=== PATIENT | female | born 1975 | race American Indian/Alaskan Native ===

== ENCOUNTER 2018-11-07 03:37 | Emergency (ER) | payer BC, OTHER ==
[2018-11-07 03:45] VITALS: BP 118/79
[2018-11-07] MEDS ORDERED: IBUPROFEN PO ONE (03:45)
[2018-11-07] MEDS ORDERED: IBUPROFEN ONE (03:48)
--- NOTE | 2018-11-07 03:53 | Emergency Department Report ---
ED Extremity Problem HPI - General Chief complaint: Extremity Injury, Lower Stated complaint: FOOT PAIN Time Seen by Provider: 11/07/18 03:44 Source: patient, EMS Mode of arrival: Ambulatory Limitations: No Limitations - History of Present Illness Initial comments: 43 yr old female presents to the ED because her left foot was run over by stretcher. Patient is a hospital employee. Patient is ambulatory. MD Complaint: extremity pain -: minutes(s) (30) Location: left, other (foot) Severity scale (0 -10): 8 Quality: aching Improves with: immobilization Worsens with: palpation Associated Symptoms: denies other symptoms - Related Data Previous Rx's Medication Instructions Recorded Last Taken Type Naproxen [Naprosyn] 500 mg PO BID #20 tablet 11/07/18 Unknown Rx Allergies Allergy/AdvReac Type Severity Reaction Status Date / Time latex Allergy Unknown Verified 11/07/18 03:44 ED Review of Systems ROS: Stated complaint: FOOT PAIN Other details as noted in HPI Comment: All other systems reviewed and negative Musculoskeletal: as per HPI Neurological: denies: numbness, paresthesias ED Past Medical Hx - Past Medical History Previous Medical History?: No - Surgical History Past Surgical History?: Yes Additional Surgical History: breast reduction - Social History Smoking Status: Never Smoker Substance Use Type: None - Medications Home Medications: Home Medications Medication Instructions Recorded Confirmed Last Taken Type Naproxen [Naprosyn] 500 mg PO BID #20 tablet 11/07/18 Unknown Rx ED Physical Exam - General Limitations: No Limitations General appearance: alert, in no apparent distress - Head Head exam: Present: atraumatic, normocephalic - Eye Eye exam: Present: normal appearance - ENT ENT exam: Present: mucous membranes moist - Neck Neck exam: Present: normal inspection - Respiratory Respiratory exam: Present: normal lung sounds bilaterally. Absent: respiratory distress - Cardiovascular Cardiovascular Exam: Present: regular rate, normal rhythm - GI/Abdominal GI/Abdominal exam: Absent: distended - Extremities Exam Extremities exam: Present: tenderness (mild tenderness to left great toe and lateral left foot; no erythema/ swelling/ deformity; able to flex and extend all 5 toes of left foot) - Neurological Exam Neurological exam: Present: alert, oriented X3. Absent: motor sensory deficit - Psychiatric Psychiatric exam: Present: normal affect, normal mood - Skin Skin exam: Present: warm, dry, intact, normal color ED Course Vital Signs 11/07/18 11/07/18 11/07/18 03:40 03:47 04:39 Temperature 98.1 F Pulse Rate 74 Respiratory 16 16 16 Rate Blood Pressure 118/79 Blood Pressure 118/79 [Left] O2 Sat by Pulse 98 Oximetry ED Medical Decision Making - Radiology Data Radiology results: report reviewed, image reviewed - Differential Diagnosis fracture, contusion Critical care attestation.: If time is entered above; I have spent that time in minutes in the direct care of this critically ill patient, excluding procedure time. ED Disposition Clinical Impression: Contusion of left foot Disposition: DC- TO HOME OR SELFCARE Is pt being admited?: No Condition: Stable Instructions: Foot Contusion (ED) Prescriptions: Naproxen [Naprosyn] 500 mg PO BID #20 tablet Referrals: PRIMARY CAREMD [Primary Care Provider] - 3-5 Days URIEL BILLINGS MD [Staff Physician] - 3-5 Days Time of Disposition: 04:27
--- NOTE | 2018-11-07 04:21 | XRay Report ---
LEFT FOOT 3 VIEWS INDICATION: trauma left foot. COMPARISON: No relevant prior imaging study available. FINDINGS: No acute fracture or dislocation. No foreign bodies. No significant degenerative changes. IMPRESSION: 1. No acute findings. Signer Name: Chidi Zambrano MD Signed: 11/07/2018 4:17 AM Workstation Name: [id number]
== END 2018-11-07 04:40 | disposition home or self-care (01) ==
LOC: ED 03:37
DX: S90.32XA Contusion of left foot, initial encounter (principal); Z91.040 Latex allergy status; W22.8XXA Striking against or struck by other objects, initial encounter; Y93.02 Activity, running; Y92.238 Other place in hospital as the place of occurrence of the external cause; Y99.8 Other external cause status
CPT/HCPCS: 99283